=== PATIENT | male | born 1965 | race Asian ===

== ENCOUNTER 2020-05-16 13:31 | Emergency (ER) | payer OTHER ==
[~2020-05-16] VITALS: Ht 175.3 cm; Wt 99.8 kg
[2020-05-16 14:31] LABS: PARTIAL THROMBOPLASTIN TIME 27.2 SECONDS (24.5-33.6)
[2020-05-16 14:35] LABS: PLATELET COUNT 238 K/uL (142-355)
[2020-05-16 14:36] LABS: POTASSIUM 4.3 mmol/L (3.6-5.2); SODIUM 137 mmol/L (136-145)
[2020-05-16 18:00] VITALS: BP 167/101; TEMP 97.3
== END 2020-05-16 18:00 | disposition home or self-care (01) ==
LOC: ED 13:31
PROVIDERS: Hospitalist
DX: I16.0 Hypertensive urgency (principal); G44.209 Tension-type headache, unspecified, not intractable; F17.210 Nicotine dependence, cigarettes, uncomplicated
CPT/HCPCS: 80053; 82550; 82553; 83880; 84484; 85027; 85379; 85610; 85730; 93005; 96374; 96375; 96376; 99284; J0360; J1885; J2405; Q9963